=== PATIENT | female | born 1965 | race Hispanic/Latino ===

== ENCOUNTER 2020-09-29 17:02 | Emergency (ER) | payer OTHER ==
[~2020-09-29 17:02] MED LIST: Iopamidol 370 76% 100 ML VIAL ONE; Sodium Chloride 0.9% 1,000 ML BAG ONE
[2020-09-29] MEDS ORDERED: Ondansetron PF 4 MG/2 ML Vial ONE (19:21)
[2020-09-29 19:31] LABS: Bilirubin Negative (Negative); Blood, Urine Negative (Negative); Clarity Clear (Clear); Glucose, Urine (Dipstick) Negative (Negative); Ketone, Urine Negative (Negative); Leukocyte Negative (Negative); Nitrite Negative (Negative); Protein, Urine (Dipstick) Negative (Neg-Trace); Urobilinogen 0.2 mg/dL (Less than 2)
[2020-09-29 19:36] LABS: ALT (SGPT) 17 U/L (8-55); AST (SGOT) 15 U/L (5-34); Alkaline Phosphatase 80 U/L (40-110); Anion Gap 16 mmol/L (10-20); BUN (Urea Nitrogen) 9 mg/dL (9.8-20.1); Bilirubin, Total 0.5 mg/dL (0.2-1.2); Calc. Creatinine Clearance 0 mL/min (70-130); Calcium 9.3 mg/dL (7.8-10.44); Carbon Dioxide 24 mmol/L (22-29); Chloride 103 mmol/L (98-107); Globulin 3.5 g/dL (2.4-3.5); Glucose 91 mg/dL (70-105); Potassium 4.2 mmol/L (3.5-5.1); Protein, Total 7.5 g/dL (6.0-8.3); Sodium 139 mmol/L (136-145)
[2020-09-29 19:38] LABS: Hemoglobin 13.8 g/dL (12.0-16.0); Mean Corpuscular HGB CONC 33.3 g/dL (32.0-36.0); Platelet Count 298 thou/uL (130-400); RBC Distribution Width 10.8 % (11.5-14.5); Red Blood Cell (RBC) Count 4.46 mill/uL (4.20-5.40); White Blood Cell (WBC) Count 11.2 thou/uL (4.8-10.8)
[2020-09-29 19:45] LABS: Band 2 % (5-11); Lymphocytes 13 % (21-51); MDiff Complete? YES; Monocytes 4 % (0-10); Neutrophil 81 % (42-75); Platelet Morphology Comment Appears Adequate; RBC Morphology Normal
[2020-09-29] MEDS ORDERED: Morphine 4 MG/ML VIAL ONE (19:51)
--- NOTE | 2020-09-29 21:21 | CT ---
CT Abdomen Pelvis W Con History: Abdominal pain Comparison: None. Findings: Lung bases are clear. No pericardial effusion. The liver, gallbladder, spleen are unremarkable. No hydronephrosis. Appendix is visualized and is normal. Moderate wall thickening of the mid sigmoid colon indicating active inflammation. Mild adjacent infla mmatory stranding. No free intraperitoneal gas. No evidence for bowel obstruction. Reactive retroperitoneal periaortic lymph nodes. Small left renal cysts. Low-grade focal dilatation of the left ureter at the pelvic brim likely sequelae of underlying sigmoi d inflammation. Impression: 1. Active sigmoid colitis with low-grade secondary left hydroureter from adjacent inflammation. 2. Normal appendix.
[2020-09-29] MEDS ORDERED: methylPREDNISolone Sod Succ/PF 125 MG/2 ML VIAL ONE (21:34)
[2020-09-29] MEDS ORDERED: metroNIDAZOLE 250 MG TAB ONE (21:34)
== END 2020-09-29 21:59 | disposition home or self-care (01) ==
LOC: MADERS 17:02
DX: K50.90 Crohn's disease, unspecified, without complications (principal)
CPT/HCPCS: 74177; 80053; 81003; 83605; 84443; 85025; 86140; 96374; 96375; J2270; J2405; J2930; J7050; Q9967

== ENCOUNTER 2023-01-16 12:53 | Emergency (ER) | payer BC | END 2023-01-16 14:12 | disposition home or self-care (01) | LOC: MADERS 12:53 | DX: Z48.00 Encounter for change or removal of nonsurgical wound dressing (principal); Z71.1 Person with feared health complaint in whom no diagnosis is made | CPT/HCPCS: 74176 ==

== ENCOUNTER 2024-09-12 17:42 | Emergency (ER) | payer BC ==
[~2024-09-12 17:42] MED LIST changes: -Sodium Chloride 0.9% 1,000 ML BAG ONE
[2024-09-12] MEDS ORDERED: Morphine 4 MG/ML VIAL ONE (18:19)
[2024-09-12] MEDS ORDERED: Ondansetron PF 4 MG/2 ML Vial ONE (18:19)
[2024-09-12] MEDS ORDERED: Morphine 2 MG/ML VIAL ONE (18:19)
[2024-09-12] MEDS ORDERED: Sodium Chloride 0.9% 1,000 ML ONE (18:19)
[2024-09-12 18:39] LABS: Band 3 % (5-11); Hematocrit 43.1 % (36.0-47.0); Hemoglobin 13.8 g/dL (12.0-16.0); Lymphocytes 15 % (21-51); MDiff Complete? YES; Mean Corpuscular HGB CONC 32.1 g/dL (32.0-36.0); Mean Corpuscular Hemoglobin 30.2 pg (27.0-31.0); Mean Platelet Volume 7.3 fL (7.4-10.4); Monocytes 11 % (0-10); Neutrophil 70 % (42-75); Platelet Adequacy Comment Appears Adequate; Platelet Count 294 10x3/uL (130-400); RBC Distribution Width 11.8 % (11.5-14.5); Red Blood Cell (RBC) Count 4.59 mill/uL (4.20-5.40); White Blood Cell (WBC) Count 8.8 10x3/uL (4.8-10.8)
[2024-09-12 18:42] LABS: ALT (SGPT) 16 U/L (8-55); AST (SGOT) 16 U/L (5-34); Albumin 4.1 g/dL (3.5-5.0); Alkaline Phosphatase 80 U/L (40-110); Anion Gap 17 mmol/L (10-20); BUN (Urea Nitrogen) 10 mg/dL (9.8-20.1); Bilirubin, Total 0.5 mg/dL (0.2-1.2); Calc. Creatinine Clearance 0 mL/min (70-130); Carbon Dioxide 22 mmol/L (22-29); Chloride 106 mmol/L (98-107); Estimated GFR 54; Globulin 3.8 g/dL (2.4-3.5); Glucose 110 mg/dL (70-105); Lipase 17 U/L (8-78); Potassium 4.2 mmol/L (3.5-5.1); Protein, Total 7.9 g/dL (6.0-8.3); Sodium 141 mmol/L (136-145)
== END 2024-09-12 19:59 | disposition short-term general hospital (02) ==
LOC: MADERS 17:42
DX: K43.9 Ventral hernia without obstruction or gangrene (principal); K56.609 Unspecified intestinal obstruction, unspecified as to partial versus complete obstruction; Z55.6 Problems related to health literacy
CPT/HCPCS: 43752; 71045; 74177; 80053; 83690; 85025; 93005; 96374; 96375; J2272; J2405; J7030; Q9967

== ENCOUNTER 2024-11-11 09:44 | Outpatient (CLI) | payer BC | END 2024-11-11 09:45 | disposition home or self-care (01) | LOC: MADLAB 09:44 | PROVIDERS: ATTEND Surgery | DX: K65.1 Peritoneal abscess (principal) | CPT/HCPCS: 74177; Q9967 ==

== ENCOUNTER 2025-07-08 08:00 | Outpatient (CLI) | payer BC ==
[2025-07-08 08:17] LABS: #Basophils 0.1 thou/uL (0.0-0.2); #Eosinophils 0.1 thou/uL (0.0-0.7); #Lymphocytes 1.0 thou/uL (1.20-3.40); #Monocytes 0.4 thou/uL (0.11-0.59); #Neutrophils 1.9 thou/uL (1.40-6.50); %Basophils 1.7 % (0.0-1.0); %Eosinophils 1.7 % (0.0-10.0); %Lymphocytes 30.3 % (21.0-51.0); %Monocytes 12.4 % (0.0-10.0); %Neutrophils 54.0 % (42.0-75.0); Hematocrit 40.2 % (36.0-47.0); Hemoglobin 13.1 g/dL (12.0-16.0); Mean Corpuscular Hemoglobin 29.8 pg (27.0-31.0); Mean Corpuscular Volume 91.7 fl (78.0-98.0); Platelet Count 358 10x3/uL (130-400); Red Blood Cell (RBC) Count 4.39 mill/uL (4.20-5.40); White Blood Cell (WBC) Count 3.4 10x3/uL (4.8-10.8)
[2025-07-08 08:34] LABS: ALT (SGPT) 11 U/L (Less than 34); AST (SGOT) 22 U/L (11-34); Albumin 4.0 g/dL (3.1-4.5); Alkaline Phosphatase 83 U/L (40-110); Anion Gap 15 mmol/L (10-20); BUN (Urea Nitrogen) 11 mg/dL (9.8-20.1); BUN/Creatinine Ratio 12.22; Bilirubin, Total 0.6 mg/dL (0.3-1.2); Calc. Creatinine Clearance 0 mL/min (70-130); Calcium 9.5 mg/dL (7.8-10.44); Carbon Dioxide 26 mmol/L (22-29); Cardiac Risk 2.7 (Less than 4.5); Chloride 106 mmol/L (98-107); Cholesterol 194 mg/dl (< 200 Desired); Globulin 3.8 g/dL (2.4-3.5); Glucose 92 mg/dL (70-105); HDL Cholesterol 72 mg/dL (>60 Neg Risk); LDL Cholesterol, Calculated 105 mg/dL; Potassium 4.1 mmol/L (3.5-5.1); Sodium 143 mmol/L (136-145); Triglycerides 86 mg/dL (Less than 150)
[2025-07-08 16:33] LABS: Free T4 (Free Thyroxine) 0.92 ng/dL (0.70-1.48)
== END 2025-07-08 08:01 | disposition home or self-care (01) ==
LOC: MADLAB 08:00
PROVIDERS: ATTEND Emergency Medicine
DX: K50.90 Crohn's disease, unspecified, without complications (principal); E03.9 Hypothyroidism, unspecified; E78.2 Mixed hyperlipidemia
CPT/HCPCS: 36415; 80053; 80061; 80069; 84439; 84443; 84481; 85025

== ENCOUNTER 2025-10-08 08:19 | Outpatient (CLI) | payer BC ==
[2025-10-08] MEDS ORDERED: Iopamidol 370 76% 100 ML VIAL ONE (09:00)
== END 2025-10-08 08:20 | disposition home or self-care (01) ==
LOC: MADRAD 08:19
PROVIDERS: ATTEND Surgery
DX: R10.11 Right upper quadrant pain (principal)
CPT/HCPCS: 74177; Q9967